=== PATIENT | female | born 1980 | race Caucasian/White ===

== ENCOUNTER 2017-02-25 13:04 | Day surgery (SDC) | payer BC ==
--- NOTE | 2017-02-25 14:37 | PD.RAD ---
Post US Procedure Prog Note Pre Procedure Diagnosis: (1) Thyroid mass Post Procedure Diagnosis: Procedure Date: Feb 25, 2017 Supervising Radiologist: Rex Butterfield Proceduralist/Assist: Dot Fournier RDMS Anesthesia: Local Plan of Activity Patient to Unit: ROPU Patient Condition: Good See PACS Report for procedural detail/treatment Biopsy Imaging Guidance: Ultrasound Biopsy Procedure: Thyroid Specimen: Fine Needle Aspirate Rex Butterfield MD Feb 25, 2017 14:37
[2017-02-25 14:40] VITALS: BP 127/75; PULSE 96; RESP 16; O2SAT 97
[2017-02-25] MEDS ORDERED: LIDOCAINE HCL 1% 20 ML VIAL ONE (15:15)
--- NOTE | 2017-02-25 15:42 | RADRPT ---
EXAM DATE/TIME: 02/25/2017 13:41 [facility] COMPARISON: No previous studies available for comparison. INDICATIONS : Right thyroid nodule. MEDICAL HISTORY : Right thyroid nodule. SURGICAL HISTORY : Cholecystectomy section. Right ovary and fallopian tubr removed due to cyst. ENCOUNTER: Initial ACUITY: 1 month PAIN SCORE: 0/10 LOCATION: Right neck ORGAN: Right thyroid lobe SPECIMENS: Five fine needle aspirate(s) submitted for pathologic evaluation. DEVICE: 25 gauge needle Post procedure scanning reveals no hematoma or other complication. The possibility does exist that the tissue obtained will be non-diagnostic. If the sample is non-carla gnostic a repeat biopsy or surgical biopsy may need to be performed. TECHNIQUE: 1. Ultrasound guidance for needle biopsy. 2. Needle biopsy. The risks, benefits and alternatives to the procedure were explained and verbal and written consent w as obtained. The site was prepped in sterile fashion. Full sterile technique was used, including ca p, mask, sterile gloves and gown and a large sterile sheet. Hand hygiene and 2% chlorhexidine and/or betadine/alcohol prep was utilized per protocol for cutaneous antisepsis. The skin and subcutaneous tissues were infiltrated with local anesthetic solution. Sterile gel and sterile probe cover were u tilized for ultrasound guidance. With the patient on the ultrasound table, images were obtained. A needle was advanced into the identified target and the number of specimens as above obtained and lopez bmitted for pathologic evaluation. The patient tolerated the procedure well and left the ultrasound suite in stable condition. CONCLUSION: Uncomplicated ultrasound guided needle biopsy. Rex Butterfield MD on February 25, 2017 at 15:39 Board Certified Radiologist. This report was verified electronically.
== END 2017-02-25 15:05 | disposition home or self-care (01) ==
LOC: HRAD 13:04 → HRIP 13:20 → HRAD 15:05
PROVIDERS: ATTEND Nurse Practitioner Family
DX: E04.1 Nontoxic single thyroid nodule (principal)
CPT/HCPCS: 10022; 76942; 88172; 88173